=== PATIENT | male | born 1950 | race African-American/Black ===

== ENCOUNTER 2016-10-16 09:30 | Observation (INO) | payer BC ==
--- NOTE | ~2016-10-16 | DS ---
Discharge Summary [facility] [address] [place]. [address] NAME: ELI FIGUEROA JR : 50 STATUS : DIS Colin PAT#: [id number] AGE: 66 ADM/REG DATE : 10/16/16 MR#: [id number] REPORT SERV DATE: 10/18/16 DICTATED BY: CHAU LYNN DATE: 10/17/16 REPORT STATUS : Draft TRANSCRIBED BY: MODTito DATE: 10/17/16 ADMISSION DATE: 10/16/2016 DISCHARGE DATE: 10/17/2016 DISCHARGE DIAGNOSES: 1. Hypertensive urgency. 2. Chest pain. 3. Chronic kidney disease stage 2. 4. Osteoarthritis. CONSULTANTS DURING THIS HOSPITALIZATION: None. INVASIVE PROCEDURES DONE DURING THIS HOSPITALIZATION: None. BRIEF HISTORY OF PRESENT ILLNESS: The patient is a 66-year-old, white male, triaged in the emergency room on 10/16/2016 at 0930 hours who came in with indigestion, nausea, bloating, sensation of chest pain, and elevated blood pressure. So he was admitted. For detailed history and physical exam, please see my note dictated on 10/16/2016. HOSPITAL COURSE: After being admitted to the hospital, this patient was observed serially and cardiac enzymes were done which remained all negative. I reviewed an echocardiogram that was done in 06/2016 with a normal ejection fraction and no significant valvular heart disease. This patient did report having some cardiac workup done at [facility], the records of which are I am not privy to. I did have a discussion with Dr. Juancarlos Montez regarding his cardiac evaluation and it seems that he was referred to see a learning engineer on [facility] at one point. Dr. Montez will get back to me regarding that evaluation. This patient otherwise remained stable. We gave him BiDil twice daily and Norvasc 5 mg once daily that seemed to have leveled his blood pressure and he feels well enough that he is being discharged to follow up in the outpatient setting. DISCHARGE DISPOSITION: Home. DISCHARGE ACTIVITY: As tolerated. DISCHARGED DIET: Low sodium diet. This was personally discussed by myself with the patient and his at the bedside. DISCHARGE MEDICATIONS: Norvasc 5 mg p.o. once daily, aspirin 325 mg once daily, BiDil 20/37.5 mg 1 tablet twice daily, Artificial Tears, Micardis HCT 80/25 mg one tablet daily, and hydrocortisone ointment as needed. DISCHARGE FOLLOWUP: With Dr. Britney Montez in one week for evaluation and management of blood pressure and any cardiac workup that may be needed in the outpatient setting. Discharge Summary [facility] [address] [place]. [address] NAME: ELI FIGUEROA JR : 50 STATUS : DIS Colin PAT#: [id number] AGE: 66 ADM/REG DATE : 10/16/16 MR#: [id number] REPORT SERV DATE: 10/18/16 DICTATED BY: CHAU LYNN DATE: 10/17/16 REPORT STATUS : Draft TRANSCRIBED BY: UDAY DATE: 10/17/16 LENNY/UDAY Chau Lynn M.D. / [id number] CC: Lu Caicedo D.O. F.A.C.P.
--- NOTE | ~2016-10-16 | HP ---
History And Physical [place] [id number] [facility] [place]. [address] NAME: ELI FIGUEROA JR : 50 STATUS : ADM Colin PAT#: [id number] AGE: 66 ADM/REG DATE : 10/16/16 MR#: [id number] REPORT SERV DATE: 10/16/16 DICTATED BY: CHAU LYNN DATE: 10/16/16 REPORT STATUS : Draft TRANSCRIBED BY: MODTito DATE: 10/16/16 DATE OF ADMISSION: 10/16/2016 CHIEF COMPLAINT: Indigestion. HISTORY OF PRESENT ILLNESS: The patient is a 66-year-old male, apparently somewhat noncompliant with his medications and skipped several doses of his blood pressure medication, came in this morning and said that he had sudden onset of indigestion in his chest. He denied any jaw pain. He had not had any diaphoresis. He did have some nausea, but no vomiting. He has had no shoulder pain. No arm pain. No back pain. When he came to the emergency room, he was noted to have a blood pressure of 215/113. He was given IV hydralazine. He has been given p.o. Norvasc and his Micardis, however, his blood pressure continued to be elevated in the 190s to 200 systolic range. His indigestion has abated at this time. When I saw the patient, he denied any other constitutional symptoms. Rest of the review of systems is negative. PAST MEDICAL HISTORY: Significant for hypertension, osteoarthritis, and chronic kidney disease, stage 3 with a baseline creatinine about 1.3 to 1.4. PAST SURGICAL HISTORY: Significant for right knee replacement. ALLERGIES: NO KNOWN DRUG ALLERGIES. HOME MEDICATIONS: Include Artificial Tears, Llio Aspirin 325 mg daily, hydrocortisone cream p.r.n. to affected area, and Micardis HCT 80/25 mg once daily. SOCIAL HISTORY: This patient denies use of alcohol, tobacco, illicit substances. , lives at home. Has not followed a good cardiac low-salt diet. He does eat potato chips at times as well. FAMILY HISTORY: Several family members with heart disease including brother and sister. One brother with heart disease before the age of 55. This patient did report to me that an episode like this has happened about three-four months ago where he was at [facility] and his workup was negative. Since then, he has also seen Dr. Juancarlos Montez who is his primary care physician and he has been sent to see a doctor for imaging studies and has been a normal report, which is not privy to us. PHYSICAL EXAMINATION: GENERAL: male, laying on a gurney, appears to be in no obvious respiratory distress. He is awake, alert. He is oriented. VITAL SIGNS: Blood pressure 205/95, heart rate in the 70s to 80s. He is afebrile. HEENT: Head is normocephalic, atraumatic. Pupils are equal, round, and reactive to light. Extraocular muscles are intact. Sclerae anicteric. Conjunctivae normal. Oropharynx without lesion. Tongue protrudes in midline. Uvula midline. NECK: Supple. No jugular venous distention. No carotid bruits or thyromegaly is appreciated. No lymphadenopathy in the neck is palpable. History And Physical [address] [address] NAME: ELI FIGUEROA MAX CORDOVA : 50 STATUS : ADM Colin PAT#: [id number] AGE: 66 ADM/REG DATE : 10/16/16 MR#: [id number] REPORT SERV DATE: 10/16/16 DICTATED BY: CHAU LYNN DATE: 10/16/16 REPORT STATUS : Draft TRANSCRIBED BY: UDAY DATE: 10/16/16 HEART: Regular rate rhythm. No murmurs, rubs, or gallops are heard. PMI nondisplaced. LUNGS: Clear to auscultation, both anteriorly and posteriorly without rales, rhonchi, wheezing, or consolidation. ABDOMEN: Slightly protuberant, but soft, nontender, good bowel sounds. No rebound or guarding. No organomegaly. EXTREMITIES: Without cyanosis, clubbing, or edema. NEUROLOGICAL: Seems to be grossly intact. LABS: Chest x-ray without any acute disease. EKG, nonspecific ST-T wave changes. No acute change. Normal sinus rhythm. Voltage criteria for left ventricular hypertrophy is noted. White count is 3.3, hemoglobin of 15, hematocrit 43.3, platelet count 180,000. Sodium 143, potassium 3.4, chloride 103, bicarb 32, BUN 17, creatinine 1.49, glucose 107. Urinalysis, negative. Troponin less than 0.02. PT 14.5, INR 1.1, PTT 30. Liver function studies are normal. Calcium 8.4. An echocardiogram was done on 06/24/2016 showed an ejection fraction of 50% normal right ventricular chamber size and systolic function. Low normal left ventricular systolic function. No evidence of significant valvular disease. IMPRESSION: 1. Hypertensive urgency. 2. Chest pain. 3. Osteoarthritis. 4. Chronic kidney disease, stage 2. PLAN: The patient will be placed in observation. Nitroglycerin paste will be applied. BiDil 20/37.5 mg will be started twice daily. We will resume his Micardis as ordered. Serial cardiac enzymes will be done. Records from Dr. Montez will have to be obtained. I do not foresee that this patient needs any further cardiac workup, but a thallium study stress test will be considered if his enzymes fluctuate in anyway. P.r.n. IV hydralazine will be used. Repeat labs again in the morning. The patient remains a full code. LENNY/UDAY Chau Lynn M.D. / [id number] CC: Chau Lynn M.D.
[~2016-10-16 09:30] MED LIST: C5; CARTIA XT240 MG/24 PO; DIOVAN HCT160 MG/25 PO; MOBIC7.5 PO; NEXIUM40 PO; PCET PO; ULORIC40 MG PO
[2016-10-16 10:27] LABS: BASOPHILS 0.3 %; BASOPHILS ABSOLUTE 0.01 10/3/uL (0.0-0.16); EOSINOPHILS 6.6 %; EOSINOPHILS ABSOLUTE 0.22 10/3/uL (0.0-0.53); ER CBC TAT 0 Hrs 08 Mins; HEMATOCRIT 43.3 % (40.0-51.0); IMMATURE GRANULOCYTES 0.3 %; IMMATURE GRANULOCYTES ABSOLUTE 0.01 10/3/uL (0.0-0.11); LYMPHOCYTES 30.1 %; MEAN CORPUS HGB CONC 34.6 g/dL (32.0-36.0); MEAN CORPUSCULAR HEMOGLOB 32.1 pg (26.0-34.0); MEAN CORPUSCULAR VOLUME 92.5 fL (80-100); MEAN PLATELET VOLUME 9.8 fL (9.2-13.0); MONOCYTES 15.7 %; MONOCYTES ABSOLUTE 0.52 10/3/uL (0.21-1.20); NEUTROPHILS ABSOLUTE 1.56 10/3/uL (2.02-8.40); PLATELET COUNT 180 10/3/uL (150-400); RBC DISTRIBUTION WIDTH 12.7 % (12.0-16.0); RED CELL COUNT 4.68 10/6/uL (4.7-6.1); WHITE BLOOD CELLS 3.3 10/3/uL (4.5-10.5)
[2016-10-16 10:29] LABS: MANUAL DIFF NO %
[2016-10-16 10:30] LABS: ASCORBIC ACID (UR NOT ORDER) NEG (NEG); BILIRUBIN, URINE NEGATIVE (NEG); ER URINALYSIS TAT 0 Hrs 11 Mins; KETONE, URINE NEGATIVE (NEG); LEUKOCYTE ESTERASE(NOT OR NEG (NEG); NITRITE (URINE) NEG (NEG); WBC (NOT ORDERED) (RFLEX) 1 (0-5)
[2016-10-16 10:32] LABS: INTERNATIONAL NORMAL RATI 1.1 UNITS (-); PROTIME (NOT ORD) 14.5 SEC (12.0-14.5)
[2016-10-16 10:33] LABS: PARTIAL THROMBO TIME 30.9 SEC (22.5-37.2)
[2016-10-16 10:45] LABS: A/G RATIO 0.9 (0.7-1.9); ALBUMIN 3.7 G/DL (3.5-5.0); ALKALINE PHOSPHATASE 64 U/L (45-117); BUN (BLOOD UREA NITROGEN) 17 MG/DL (6-23); CALCIUM, SERUM 8.4 MG/DL (8.5-10.4); CHLORIDE, SERUM 103 MMOL/L (96-112); CO2 (CARBON DIOXIDE) 32 MMOL/L (24-34); CREATININE 1.49 MG/DL (0.70-1.30); GFR AFRICAN AMERICAN 56 ML/MIN (>=60); GFR NON AFRICAN AMERICAN 48 ML/MIN (>=60); GLUCOSE, SERUM 107 MG/DL (60-99); POTASSIUM, SERUM 3.4 MMOL/L (3.5-5.3); SGOT(AST) 25 U/L (5-40); SGPT(ALT) 37 U/L (5-65); SODIUM, SERUM 143 MMOL/L (135-148); TOTAL BILIRUBIN 0.8 MG/DL (0-1.2); TOTAL PROTEIN 7.7 G/DL (6.0-8.5); TROPONIN I <0.02 NG/ML (<0.05)
[2016-10-16] MEDS ORDERED: ASABAYER PO (11:25)
[2016-10-16] MEDS ORDERED: HYDROCORTISONE30 G4 TOP (11:26)
[2016-10-16] MEDS ORDERED: TEARS PLUS OPH (11:26)
[2016-10-16] MEDS ORDERED: MICARDIS H80 MG/25 M PO (11:26)
[2016-10-16 16:11] LABS: PHOSPHORUS, SERUM 2.1 MG/DL (2.5-4.5)
[2016-10-17 04:04] LABS: ALBUMIN 3.3 G/DL (3.5-5.0); CALCIUM, SERUM 8.2 MG/DL (8.5-10.4); CHLORIDE, SERUM 105 MMOL/L (96-112); CO2 (CARBON DIOXIDE) 29 MMOL/L (24-34); CREATININE 1.64 MG/DL (0.70-1.30); GFR AFRICAN AMERICAN 50 ML/MIN (>=60); GFR NON AFRICAN AMERICAN 43 ML/MIN (>=60); PHOSPHORUS, SERUM 2.1 MG/DL (2.5-4.5); POTASSIUM, SERUM 3.5 MMOL/L (3.5-5.3); SODIUM, SERUM 143 MMOL/L (135-148)
[2016-10-17 04:08] LABS: BUN (BLOOD UREA NITROGEN) 22 MG/DL (6-23); GLUCOSE, SERUM 144 MG/DL (60-99)
[2016-10-17] MEDS ORDERED: BIDIL20/37 PO (14:11)
[2016-10-17] MEDS ORDERED: NORV5 PO (14:13)
== END 2016-10-17 15:53 | disposition home health service (06) ==
LOC: ER 09:30 → 7NO 11:50 → 6NO 13:03
PROVIDERS: Emergency Medicine; Internal Medicine
DX: I16.0 Hypertensive urgency (principal); M19.90 Unspecified osteoarthritis, unspecified site; I12.9 Hypertensive chronic kidney disease with stage 1 through stage 4 chronic kidney disease, or unspecified chronic kidney disease; N18.2 Chronic kidney disease, stage 2 (mild); Z98.890 Other specified postprocedural states; Z79.82 Long term (current) use of aspirin; Z79.899 Other long term (current) drug therapy
CPT/HCPCS: 71010; 80053; 80069; 81001; 83036; 83735; 84100; 84443; 84484; 85025; 85610; 85730; 96372; 96374; 99285; A9270-GY; G0378; J0360

== ENCOUNTER 2016-10-19 12:56 | Emergency (ER) | payer BC ==
[~2016-10-19 12:56] MED LIST changes: +ASABAYER PO; +BIDIL20/37 PO; +HYDROCORTISONE30 G4 TOP; +MICARDIS H80 MG/25 M PO; +NORV5 PO; +TEARS PLUS OPH
[2016-10-19 15:28] LABS: BASOPHILS 0.2 %; BASOPHILS ABSOLUTE 0.01 10/3/uL (0.0-0.16); EOSINOPHILS 2.7 %; EOSINOPHILS ABSOLUTE 0.15 10/3/uL (0.0-0.53); HEMATOCRIT 41.3 % (40.0-51.0); HEMOGLOBIN 14.3 g/dL (13.6-17.8); IMMATURE GRANULOCYTES 0.2 %; IMMATURE GRANULOCYTES ABSOLUTE 0.01 10/3/uL (0.0-0.11); LYMPHOCYTES 19.8 %; MEAN CORPUS HGB CONC 34.6 g/dL (32.0-36.0); MEAN CORPUSCULAR HEMOGLOB 32.2 pg (26.0-34.0); MEAN PLATELET VOLUME 10.1 fL (9.2-13.0); MONOCYTES 13.9 %; MONOCYTES ABSOLUTE 0.77 10/3/uL (0.21-1.20); NEUTROPHILS 63.2 %; NEUTROPHILS ABSOLUTE 3.51 10/3/uL (2.02-8.40); PLATELET COUNT 185 10/3/uL (150-400); RBC DISTRIBUTION WIDTH 13.5 % (12.0-16.0); RED CELL COUNT 4.44 10/6/uL (4.7-6.1)
[2016-10-19 15:30] LABS: ER CBC TAT 0 Hrs 11 Mins; MANUAL DIFF NO %; WHITE BLOOD CELLS 5.6 10/3/uL (4.5-10.5)
[2016-10-19 15:37] LABS: INTERNATIONAL NORMAL RATI 1.2 UNITS (-); PARTIAL THROMBO TIME 30.8 SEC (22.5-37.2); PROTIME (NOT ORD) 14.6 SEC (12.0-14.5)
[2016-10-19 15:44] LABS: CALCIUM, SERUM 8.8 MG/DL (8.5-10.4); CHEST PAIN PROFILE TAT 0 Hrs 25 Mins; CHLORIDE, SERUM 105 MMOL/L (96-112); CO2 (CARBON DIOXIDE) 28 MMOL/L (24-34); GFR AFRICAN AMERICAN 39 ML/MIN (>=60); GFR NON AFRICAN AMERICAN 34 ML/MIN (>=60); GLUCOSE, SERUM 126 MG/DL (60-99); POTASSIUM, SERUM 3.4 MMOL/L (3.5-5.3); SODIUM, SERUM 142 MMOL/L (135-148); TROPONIN I <0.02 NG/ML (<0.05)
[2016-10-19 15:45] LABS: BUN (BLOOD UREA NITROGEN) 27 MG/DL (6-23)
== END 2016-10-19 18:51 | disposition home or self-care (01) ==
LOC: ER 12:56
PROVIDERS: Hospitalist
DX: I10 Essential (primary) hypertension (principal); Z79.82 Long term (current) use of aspirin; Z79.899 Other long term (current) drug therapy
CPT/HCPCS: 80048; 83735; 84484; 85025; 85610; 85730; 93005; 99284

== ENCOUNTER 2016-11-02 21:41 | Emergency (ER) | payer BC ==
[2016-11-02 22:40] LABS: BASOPHILS 0.2 %; BASOPHILS ABSOLUTE 0.01 10/3/uL (0.0-0.16); EOSINOPHILS 5.2 %; EOSINOPHILS ABSOLUTE 0.25 10/3/uL (0.0-0.53); HEMATOCRIT 37.2 % (40.0-51.0); HEMOGLOBIN 12.7 g/dL (13.6-17.8); IMMATURE GRANULOCYTES 0.2 %; IMMATURE GRANULOCYTES ABSOLUTE 0.01 10/3/uL (0.0-0.11); LYMPHOCYTES 12.9 %; LYMPHOCYTES ABSOLUTE 0.62 10/3/uL (0.67-4.30); MEAN CORPUS HGB CONC 34.1 g/dL (32.0-36.0); MEAN CORPUSCULAR HEMOGLOB 31.4 pg (26.0-34.0); MEAN CORPUSCULAR VOLUME 92.1 fL (80-100); MEAN PLATELET VOLUME 9.6 fL (9.2-13.0); MONOCYTES 19.9 %; MONOCYTES ABSOLUTE 0.96 10/3/uL (0.21-1.20); NEUTROPHILS 61.6 %; NEUTROPHILS ABSOLUTE 2.97 10/3/uL (2.02-8.40); PLATELET COUNT 172 10/3/uL (150-400); RBC DISTRIBUTION WIDTH 13.1 % (12.0-16.0); RED CELL COUNT 4.04 10/6/uL (4.7-6.1); WHITE BLOOD CELLS 4.8 10/3/uL (4.5-10.5)
[2016-11-02 22:43] LABS: MANUAL DIFF NO %
[2016-11-02 22:49] LABS: ASCORBIC ACID (UR NOT ORDER) NEG (NEG); BILIRUBIN, URINE NEGATIVE (NEG); ER URINALYSIS TAT 0 Hrs 13 Mins; KETONE, URINE NEGATIVE (NEG); LEUKOCYTE ESTERASE(NOT OR NEG (NEG); NITRITE (URINE) NEG (NEG); WBC (NOT ORDERED) (RFLEX) 1 (0-5)
[2016-11-02 22:50] LABS: INTERNATIONAL NORMAL RATI 1.3 UNITS (-); PARTIAL THROMBO TIME 30.7 SEC (22.5-37.2); PROTIME (NOT ORD) 15.7 SEC (12.0-14.5)
[2016-11-02 22:58] LABS: BUN (BLOOD UREA NITROGEN) 27 MG/DL (6-23); CALCIUM, SERUM 8.1 MG/DL (8.5-10.4); CHEST PAIN PROFILE TAT 0 Hrs 22 Mins; CHLORIDE, SERUM 103 MMOL/L (96-112); CO2 (CARBON DIOXIDE) 26 MMOL/L (24-34); CREATININE 1.94 MG/DL (0.70-1.30); GFR AFRICAN AMERICAN 41 ML/MIN (>=60); GFR NON AFRICAN AMERICAN 35 ML/MIN (>=60); GLUCOSE, SERUM 157 MG/DL (60-99); POTASSIUM, SERUM 3.6 MMOL/L (3.5-5.3); SODIUM, SERUM 139 MMOL/L (135-148); TROPONIN I <0.02 NG/ML (<0.05)
== END 2016-11-03 00:13 | disposition home or self-care (01) ==
LOC: ER 21:41
PROVIDERS: Hospitalist
DX: R55 Syncope and collapse (principal); I12.9 Hypertensive chronic kidney disease with stage 1 through stage 4 chronic kidney disease, or unspecified chronic kidney disease; N18.9 Chronic kidney disease, unspecified; Z79.82 Long term (current) use of aspirin; Z79.899 Other long term (current) drug therapy
CPT/HCPCS: 71010; 80048; 81001; 83735; 84484; 85025; 85610; 85730; 93005; 99284